=== PATIENT | male | born 1945 | race Caucasian/White ===

== ENCOUNTER 2019-05-21 18:46 | Emergency (ER) | payer MEDICARE ==
[~2019-05-21] VITALS: Ht 167.6 cm; Wt 72.3 kg
[~2019-05-21 18:46] MED LIST: ALFU10; ASPI81CH; ATEN25; Amaryl1 MG; CLOP75; METF500C PO; NITR.4SL; NITR.6SL SL; PIOG15; PRAV20; PRED20 PO; RANI150 PO; VIT; VITAMINS; VITORIN
[2019-05-21] MEDS ORDERED: PIOG15 PO (18:59)
[2019-05-21] MEDS ORDERED: ALFU10 PO (18:59)
[2019-05-21] MEDS ORDERED: Pravachol40 MG PO (18:59)
[2019-05-21] MEDS ORDERED: METO25 PO (19:00)
[2019-05-21 19:08] LABS: BASOPHILS ABSOLUTE AUTO 0.02 K/mm3 (0.00-0.23); BASOPHILS PERCENT AUTO 0 % (0-2); EOSINOPHILS ABSOLUTE AUTO 0.18 K/mm3 (0.00-0.68); EOSINOPHILS PERCENT AUTO 2 % (0-6); Hematocrit 42.3 % (37.0-53.0); IMMATURE GRAN ABSOLUTE AUTO 0.02 K/mm3 (0.00-0.10); IMMATURE GRAN PERCENT AUTO 0 % (0-1); LYMPHOCYTES ABSOLUTE AUTO 1.64 K/mm3 (0.84-5.20); LYMPHOCYTES PERCENT AUTO 19 % (21-46); MONOCYTES ABSOLUTE AUTO 0.48 K/mm3 (0.16-1.47); MONOCYTES PERCENT AUTO 6 % (4-13); Mean Corpuscular HGB 31.5 pg (26.0-34.0); Mean Corpuscular HGB Conc 33.1 g/dL (31.5-36.5); Mean Corpuscular Volume 95 fL (80-100); Mean Platelet Volume 10.5 fL (9.1-12.4); NEUTROPHILS ABSOLUTE AUTO 6.46 K/mm3 (1.96-9.15); NEUTROPHILS PERCENT AUTO 74 % (41-73); Platelet Count 153 K/mm3 (150-400); RDW Coefficient Variation 13.2 % (11.7-14.2); RDW Standard Deviation 46.6 fL (35.1-46.3); Red Blood Cell Count 4.44 M/mm3 (4.30-5.90)
[2019-05-21 19:25] LABS: Alanine Aminotransfer (ALT/SGP 27 U/L (12-78); Albumin, Blood 3.9 g/dL (3.4-5.0); Alk Phos 56 U/L (50-136); Anion Gap 6 mmol/L (6-16); Aspartate Aminotrans (AST/SGOT 35 U/L (12-37); Bilirubin, Total 0.8 mg/dL (0.1-1.0); Blood Urea Nitrogen 18 mg/dL (8-24); Bun/Creatinine Ratio 20.8 (12.0-20.0); CO2, Blood 26 mmol/L (21-32); Calcium, Blood 8.9 mg/dL (8.5-10.1); Chloride, Blood 106 mmol/L (98-108); Creatinine, Blood 0.87 mg/dL (0.60-1.20); Globulin, Blood 3.8 g/dL (2.2-4.0); Glomerular Filtration Rate >60 (60-); Glucose, Blood 128 mg/dL (70-99); Potassium, Blood 3.9 mmol/L (3.5-5.5); Sodium, Blood 138 mmol/L (136-145); Total Protein, Blood 7.7 g/dL (6.4-8.2)
[2019-05-21 20:18] LABS: International Normalized Ratio 1.14; Prothrombin Time Results 11.9 Sec (9.7-11.5)
[2019-05-21] MEDS ORDERED: Amaryl1 MG PO (20:38)
== END 2019-05-21 21:38 | disposition short-term general hospital (02) ==
LOC: ER 18:46
PROVIDERS: Emergency Medicine; Physician Assistant
DX: I21.4 Non-ST elevation (NSTEMI) myocardial infarction (principal); Z88.8 Allergy status to other drugs, medicaments and biological substances; Z91.018 Allergy to other foods; Z79.899 Other long term (current) drug therapy; E78.5 Hyperlipidemia, unspecified; I25.10 Atherosclerotic heart disease of native coronary artery without angina pectoris
CPT/HCPCS: 71046; 80053; 83735; 84484; 85025; 85610; 85730; 93005; 93010; 96365; 96376; 99285-25; J1644

== ENCOUNTER 2024-02-18 06:09 | Day surgery (SDC) | payer MEDICARE ==
[~2024-02-18] VITALS: Ht 167.6 cm; Wt 68.5 kg
[2024-02-18] VITALS (12 sets, daily range): BP systolic 119–160; BP diastolic 72–89
[~2024-02-18 06:09] MED LIST changes: +ALFU10 PO; +ASPI81CH PO; +Amaryl1 MG PO; +METO25 PO; +PIOG15 PO; +PRAV20 PO
[2024-02-18] MEDS ORDERED: Lactated Ringer's 1,000 ML IV SCH (06:15)
[2024-02-18] MEDS ORDERED: FentaNYL Citrate 50 MCG/ML 2 ML Injection ONE (07:18)
[2024-02-18] MEDS ORDERED: propofoL 20 ML IV ONE (07:18)
[2024-02-18] MEDS ORDERED: Lidocaine HCl 2% 20 ML MDV ONE (07:19)
[2024-02-18] MEDS ORDERED: Bupivacaine 0.5% HCl 5 MG/ML 30MLVIAL ONE (07:22)
[2024-02-18] MEDS ORDERED: Dexamethasone Sod Phos 10 MG/ML 1ML VIAL ONE (07:40)
--- NOTE | 2024-02-18 07:45 | NUR ---
02/18/24 0745 Corbin Magana PROCEDURE DONE IN OR UNDER GENERAL ANESTHESIA
[2024-02-18] MEDS ORDERED: Ondansetron HCl 2 MG / ML 2ML Vial ONE (07:51)
[2024-02-18] MEDS ORDERED: OxyCODONE 5 mg/Acetamin 325 mg TABLET PO PRN (08:45)
--- NOTE | 2024-02-18 09:00 | NUR ---
0858 REPORT RECEIVED FROM DAVID GO. VSS. PT ON RA. PT RESTING QUIETLY, RESPONDS TO VERBAL COMMANDS. PT HAS NO COMPLAINTS. AT BEDSIDE.
--- NOTE | 2024-02-18 09:46 | NUR ---
DISCHARGE NOTE PT A&OX4, BREATHING RA, VSS. PT FELT SLIGHTLY DIZZY WHEN GETTING OOB, PT SAT BACK DOWN FOR A SNACK AND PO FLUIDS AND FELT MUCH BETTER. PT ABLE TO DRESS C ASSISTANCE. Discharge instructions reviewed with patient. Patient verbalizes understanding. Copy given to patient to take home. Dressing to procedure site clean, dry, intact with no visible drainage, swelling, erythema or bruising noted. Discharged via wheelchair to private car for ride home. GLASSES RETURNED TO PATIENT.
== END 2024-02-18 09:58 | disposition home or self-care (01) ==
LOC: ORSCMMR 06:09 → ORD 07:30 → ORSCMMR 09:58
PROVIDERS: Surgery
PROC: 06BY0ZC Excision of Hemorrhoidal Plexus, Open Approach (ICD-10-PCS; principal; 2024-02-18 07:30)
PROC: 0DJD8ZZ Inspection of Lower Intestinal Tract, Via Natural or Artificial Opening Endoscopic (ICD-10-PCS; principal; 2024-02-18 07:30)
DX: K62.5 Hemorrhage of anus and rectum (principal); K64.2 Third degree hemorrhoids; K57.30 Diverticulosis of large intestine without perforation or abscess without bleeding; I10 Essential (primary) hypertension; I25.10 Atherosclerotic heart disease of native coronary artery without angina pectoris; E11.9 Type 2 diabetes mellitus without complications; K21.9 Gastro-esophageal reflux disease without esophagitis; Z79.84 Long term (current) use of oral hypoglycemic drugs; Z79.899 Other long term (current) drug therapy
CPT/HCPCS: 82947; 88304; J1100; J2405; J2704; J3010; J7120